=== PATIENT | female | born 1965 | race Caucasian/White ===

== ENCOUNTER 2019-03-01 18:12 | Emergency (ER) | payer BC ==
[~2019-03-01] VITALS: Ht 157.5 cm; Wt 77.1 kg
[2019-03-02 02:34] VITALS: BP 153/89
== END 2019-03-02 04:57 | disposition home or self-care (01) ==
LOC: ER 18:12
DX: S00.03XA Contusion of scalp, initial encounter (principal); I10 Essential (primary) hypertension; Z88.0 Allergy status to penicillin; Z88.2 Allergy status to sulfonamides; W19.XXXA Unspecified fall, initial encounter; Y93.89 Activity, other specified; Y99.8 Other external cause status; Y92.89 Other specified places as the place of occurrence of the external cause
CPT/HCPCS: 70450